=== PATIENT | female | born 1985 | race Caucasian/White ===

== ENCOUNTER 2024-04-21 04:53 | Emergency (ER) | payer OTHER, SELFPAY ==
[2024-04-21 04:55] VITALS: BP 104/64
--- NOTE | 2024-04-21 06:25 | ED.GENMED ---
History of Present Illness
General
Chief Complaint: Musculo-Skeletal Complaint
Source: patient and other
Exam Limitations: none
Time Seen by Provider: 04/21/24 06:21
History of Present Illness
History of Present Illness:
Patient fell backwards from a standing position playing darts about 7 to 8 hours ago. Notes severe pain in her buttock. No other injury or complaint. No head injury. No neck pain. No upper back pain. Patient absolutely denies
Past History
Past History
ED Past Medical History: Psychiatric (MDD)
Social History
Tobacco: Smoker
Alcohol: Occasional
Drug: None
Phy Exam
Physical Exam
Physical Exam:
GENERAL: Patient nontoxic. Lying flat on her abdomen. Normocephalic atraumatic
NECK: Supple, nontender
ENT: Pharynx without erythema
CARDIAC: Regular rate and rhythm
LUNGS: No chest wall tenderness
NEUROLOGICAL: Alert and oriented , grossly non-focal
SKIN: Warm and dry, no rash or lesion, no discoloration, skin intact.
MUSCULOSKELETAL: Midline tenderness over the lower sacral area. No open wound. No deformity. No lumbar tenderness no pelvic tenderness
PSYCH: Normal and appropriate interaction.
Course
Orders/Labs/Results
Orders:
Orders
04/21/24 06:24
Pelvis, 1 or 2 Views CR [CR Pelvis - 1 Or 2 Views ] Urgent
Comment:
Reason For Exam: trauma
Sacrum/Coccyx 2 View CR [CR Sacrum/coccyx Min 2 View] Urgent
Comment:
Reason For Exam: trauma
04/21/24 08:28
Ketorolac [Toradol] 30 mg IM NOW STA
Vital Signs
Initial and Last Documented VS:
Initial Vital Signs
Temp Pulse Resp BP Pulse Ox
97.7 F 98 22 104/64 100
04/21/24 04:55 04/21/24 04:55 04/21/24 04:55 04/21/24 04:55 04/21/24 04:55
Last Documented Vital Signs
Temp Pulse Resp BP Pulse Ox
97.7 F 98 22 104/64 100
04/21/24 04:55 04/21/24 04:55 04/21/24 04:55 04/21/24 04:55 04/21/24 04:55
*Radiology
Radiology exam reviewed: preliminary read by ED provider (Lower sacral fracture minimally displaced)
*Pulse Oximetry
Patient hypoxic: no
*Critical Care Note
Total Time (30-74mins, 75-104mins- exclusive of procedures): Not Applicable
Update Note
Update Note:
Patient standing walking. Symptomatic treatment and follow-up.
ED Attending Note
-
Portions of this chart may have been created with voice recognition software.� Occasional wrong word or��sound alike� substitutions may have occurred due to the inherent limitations of voice recognition software.
Discharge Plan
Departure
Patient Disposition: Home (Routine Discharge)
Date of Disposition: 04/21/24
Time of Disposition: 08:29
Patient with high blood pressure during this ER visit?: No
Discharge Problem:
Sacral fracture
Referrals:
NONE,* [Active] -
Jovanni Villa MD [Active] - Follow up in 2-3 days
Stand Alone Forms: Return to Work
Activity Restrictions/Additional Instructions:
Advil or Motrin for pain you can also add Tylenol
Get a donut to sit on
Return sooner with increased pain numbness tingling weakness or any other concerning symptoms
Interventions
Interventions:
*Risk Screen - Suicide Last Done: 04/21/24 04:55
*General Assessment Last Done: 04/21/24 05:32
*Neglect/Abuse Screening Last Done: 04/21/24 04:55
ED- Fall Risk Assessment Last Done: 07/07/24 05:32
ED-Musculoskeletal Assessment Last Done: 04/21/24 05:32
ED- Neurological Assessment Last Done: 04/21/24 05:32
ED-Skin Assessment Last Done: 04/21/24 05:32
Discharge Date and Time
Print Language: ROMANIAN
[2024-04-21] MEDS: TORADOL 30 MG IM (09:11)
[2024-04-21 10:00] VITALS: BP 116/69
== END 2024-04-21 10:50 | disposition home or self-care (01) ==
LOC: EMR 04:53
PROVIDERS: EMERGENCY PHYSICIAN Emergency Medicine; FAMILY PHYSICIAN Nurse Practitioner Family
DX: S32.10XA Unspecified fracture of sacrum, initial encounter for closed fracture (principal); W19.XXXA Unspecified fall, initial encounter; F17.200 Nicotine dependence, unspecified, uncomplicated
CPT/HCPCS: 99283; 72170; 72220

== ENCOUNTER 2025-06-10 11:37 | Emergency (ER) | payer OTHER, SELFPAY ==
[2025-06-10 11:40] VITALS: BP 145/92
[2025-06-10 12:02] VITALS: BMI 28.0
--- NOTE | 2025-06-10 12:28 | ED.GENMED ---
History of Present Illness
General
Chief Complaint: Problems
Source: patient
Exam Limitations: none
Time Seen by Provider: 06/10/25 12:02
Nursing documentation reviewed up to this point in time: agreed with
History of Present Illness
History of Present Illness:
Patient , currently 7 weeks via LMP, presents to ED secondary to sudden onset of lower abdominal pain associated with passage of small clots and bleeding, on approximately 30 minutes after having had sexual intercourse with her partner.
Denies fever or chills. Denies nausea or vomiting. Denies recent illness. Denies previous history of similar symptoms. Patient had her initial evaluation with [employer] physician yesterday, and has an outpatient ultrasound ordered for next month.
Past History
Past History
ED Past Medical History: Psychiatric (MDD)
Social History
Tobacco: Smoker
Alcohol: Occasional
Drug: None
Review of Systems
Review of Systems
Allergies reviewed?: Yes
All Other Systems: ROS reviewed and negative except as documented in HPI and ROS
Constitutional: Reports no symptoms
Cardiac: Reports no symptoms
ABD/GI: Reports abdominal pain; Denies nausea or vomiting
: Reports bleeding
Musculoskeletal: Reports no symptoms
Skin: Reports no symptoms
Neurological: Reports no symptoms; Denies dizzy or weakness
Phy Exam
Physical Exam
Physical Exam:
Physical Exam
General: no apparent distress, not acutely ill. afebrile
Head: nc/at. eomi
Neck: supple. no meningeal signs.
Heart: s1/s2 regular rate and rhythm
Lungs: no acute respiratory distress. clear bilaterally
Abdomen: normal bowel sounds. not tender.
Neuro: alert and oriented x 3. no focal neurological deficits
Skin: no rash
Psychiatric: well kept. interactive and cooperative
Extremities: no edema. no calf tenderness.
Course
Orders/Labs/Results
Orders:
Orders
06/10/25 12:06
US W Transvaginal Urgent
Reason For Exam: low abd pain w bleeding
06/10/25 12:07
Type+Screen Urgent
Complete Blood Count/With Diff Urgent
Comprehensive Metabolic Panel Urgent
HCG, Beta Quantitative [Beta HCG Quantitative] Urgent
Is this a screen?: No
06/10/25 13:05
Add On- LAB Urgent
Tests Added?: HCG quant
06/10/25 13:28
Rho (D) Immune Globulin [Rhogam] 300 mcg IM ONCE ONE
06/10/25 13:29
* Blood Bank Products Urgent
Blood Bank Products: *Rhogam - Full Dose
Quantity: 300mg
Transfuse Today: Yes
Reason: Other
Other reason: Vaginal bleeding/miscarriage
Abnormal Lab Results
06/10/25
12:07
WBC 11.3 H 10^3/uL
(4.8-10.8)
Absolute Neuts (auto) 8.3 H 10^3/uL
(1.4-6.5)
Absolute Monos (auto) 0.7 H 10^3/uL
(0.1-0.6)
Lymphocytes % 15.7 L %
(20.5-51.1)
Chloride 110 H mmol/L
(98-107)
Creatinine 0.5 L mg/dL
(0.6-1.0)
Alkaline Phosphatase 34 L U/L
(38-126)
06/10/25 12:07
06/10/25 12:07
Vital Signs
Initial and Last Documented VS:
Initial Vital Signs
Temp Pulse Resp BP Pulse Ox
97.6 F 84 18 145/92 99
06/10/25 11:40 06/10/25 11:40 06/10/25 11:40 06/10/25 11:40 06/10/25 11:40
Last Documented Vital Signs
Temp Pulse Resp BP Pulse Ox
97.6 F 84 18 145/92 99
06/10/25 11:40 06/10/25 11:40 06/10/25 11:40 06/10/25 11:40 06/10/25 12:29
Information
Weeks gestation: Weeks: (6)
Location: Location: ([facility])
MDM/Problems Addressed
MDM/Problems Addressed:
Pelvic ultrasound report reviewed and discussed with patient.
External vaginal exam performed (JAMIA Pickering, at bedside): no obvious injury noted
Blood type noted - RhoGAM ordered. Patient will follow-up with her [employer] physician for further evaluation and treatment.
Discussed with on-call dust collector operator (), including US report. Offered to see pt in the office for f/u. Pt feels comfortable with treatment plan. Patient is afebrile, hemodynamically stable, and appears comfortable, at time of discharge, to
the care of her partner.
*Pulse Oximetry
SaO2: 99
Oxygen Mode of Delivery: Room air
Patient hypoxic: no
*Critical Care Note
Total Time (30-74mins, 75-104mins- exclusive of procedures): Not Applicable
ED Attending Note
-
Portions of this chart may have been created with voice recognition software.� Occasional wrong word or��sound alike� substitutions may have occurred due to the inherent limitations of voice recognition software.
Discharge Plan
Departure
Patient Disposition: Home (Routine Discharge)
Date of Disposition: 06/10/25
Time of Disposition: 15:35
Patient with high blood pressure during this ER visit?: Yes
Condition: Fair
Discharge Problem:
Vaginal bleeding during
Instructions: Threatened Miscarriage (DC)
Referrals:
Zoran Osuna MD [Family Provider, Family Practice]
Kelechi Rodas MD [Active, Gynecology]
Activity Restrictions/Additional Instructions:
As discussed, please follow-up with referred [employer] physician for further evaluation and treatment.
Interventions
Interventions:
*Risk Screen - Suicide Last Done: 06/10/25 11:40
*General Assessment Last Done: 06/10/25 12:05
*Neglect/Abuse Screening Last Done: 06/10/25 12:05
*ED- Fall Risk Assessment Last Done: 06/10/25 12:06
*ED COVID-19 Vaccine History Last Done: 06/10/25 12:05
ED-Female Genitourinary Assessment Last Done: 06/10/25 12:05
Discharge Date and Time
Print Language: INDIAN
[2025-06-10 12:29] LABS: ALT (SGPT) 14 U/L (0-35); AST (SGOT) 14 U/L (14-36); Albumin 4.5 g/dl (3.5-5.0); Alkaline Phosphatase 34 U/L (38-126); Blood Urea Nitrogen 10 mg/dl (7-17); Calcium 9.2 mg/dl (8.4-10.2); Carbon Dioxide 23 mmol/L (22-30); Chloride 110 mmol/L (98-107); Estimated Creatinine Clearance 116 ml/min; Glucose 97 mg/dl (70-99); Potassium 4.0 mmol/L (3.5-5.1); Sodium 138 mmol/L (135-145); Total Protein 6.5 g/dl (6.3-8.2); eGFR > 60.00
[2025-06-10 12:34] LABS: Hematocrit 39.1 % (37.0-47.0); Hemoglobin 13.2 g/dL (12.0-16.0); Mean Corp Hgb Conc. 33.8 g/dL (33.0-37.0); Mean Corpuscular Volume 91.6 fL (81.0-99.0); Nucleated Red Blood Cells % 0 %; Platelet Count 229 10^3/uL (130-400); Red Cell Dist. Width 12.1 % (11.5-14.5)
[2025-06-10 14:20] LABS: Beta HCG Quantitative 1115.80 mIU/ml
[2025-06-10] MEDS: RHOGAM 300 MCG IM (15:29)
== END 2025-06-10 15:45 | disposition home or self-care (01) ==
LOC: EMR 11:37
PROVIDERS: EMERGENCY PHYSICIAN Emergency Medicine; FAMILY PHYSICIAN Family Medicine
DX: O20.9 Hemorrhage in early pregnancy, unspecified (principal); O26.899 Other specified pregnancy related conditions, unspecified trimester; Z67.11 Type A blood, Rh negative; O99.331 Smoking (tobacco) complicating pregnancy, first trimester; Z3A.01 Less than 8 weeks gestation of pregnancy
CPT/HCPCS: 99284; 96372; 76801; 76817; 80053; 84702; 85025; 86850; 86900; 86901; J2790